=== PATIENT | male | born 1950 | race Two or more races ===

== ENCOUNTER 2019-04-21 15:27 | Inpatient (IN) | payer OTHER ==
[~2019-04-21] VITALS: Ht 172.7 cm; Wt 61.3 kg
[2019-04-21 17:50] LABS: Basophils # (auto) 0.1 uL; Basophils % (auto) 0.7 % (0.0-2.0); Eosinophils # (auto) 0.2 uL; Eosinophils % (auto) 2.6 % (0.0-7.0); Hematocrit 45.4 % (41.0-53.0); Hemoglobin 15.3 g/dL (13.5-17.5); Lymphocytes # (auto) 1.4 uL; Mean Corpuscular Hemoglobin 30.7 pg (28.0-32.0); Mean Corpuscular Hgb Conc. 33.7 g/dL (32.0-36.0); Mean Corpuscular Volume 91.2 fL (80.0-100.0); Monocytes # (auto) 0.7 uL; Monocytes % (auto) 8.1 % (0.0-12.0); Neutrophils % (auto) 71.6 % (37.0-80.0); Platelet Count (auto) 256 10^3/uL (140-450); Red Blood Cells 4.98 10^6/uL (4.5-5.90); Red Cell Distribution Width 13.5 % (11.8-14.3); White Blood Cell 8.4 10^3/uL (4.4-10.8)
[2019-04-21 18:05] LABS: Albumin 3.9 g/dL (3.4-5.0); BUN/Creatinine Ratio 20.6; Calcium 8.8 mg/dL (8.5-10.1)
[2019-04-21 18:08] LABS: Bilirubin, Total 0.3 mg/dL (0.2-1.0); Total Protein 7.8 g/dL (6.4-8.2)
[2019-04-21] MEDS ORDERED: HYDROcodone-ACET 10/325MG TAB PO PRN (20:00)
[2019-04-21] MEDS ORDERED: NITROGLYCERIN 0.4 MG SL TAB SL PRN (20:15)
[2019-04-21] MEDS ORDERED: MORPHINE SULF INJ 2 MG/ML SYRINGE 1ML IV PRN (20:15)
[2019-04-21 21:20] VITALS: BP 122/63
--- NOTE | 2019-04-21 21:20 | NUR ---
MS admit from ER JEF PAEZ admitted to tele/MS after SBAR received. Patient oriented to LIZBETH PULLIAM, REGGIE primary RN, unit, room, bed, and unit policies regarding patient care and visiting hours. Patient weighed by bedscale and encouraged to call if they need something. All questions and concerns addressed, patient verbalized understanding.
[2019-04-22 04:35] VITALS: BP 107/64
--- NOTE | 2019-04-22 07:49 | NUR ---
Opening Note Assumed pt care from [facility] nurse. Pt is a/ox4 with no s/s of distress or SOB. Pt is currently laying in bed with no complaints at this time. Noted that patient does not currently have an IV. Will place a new IV. Discussed POC with pt; pt verbalized understanding. Safety measures maintained with call light within reach, bed in lowest position and side rails up. Will continue to monitor for changes q1hr and prn.
--- NOTE | 2019-04-22 08:42 | NUR ---
IV Insertion 20 G to pt's L FA inserted using clean/sterile technique. Pt tolerated insertion well. IV is patent and flushes without issue.
[2019-04-22 09:00] VITALS: BP 108/57
[2019-04-22] MEDS: ENOXAPARIN SOD 40 MG/0.4 ML SYRINGE SC SCH (09:34)
[2019-04-22 13:00] VITALS: BP 102/70
--- NOTE | 2019-04-22 17:15 | NUR ---
Dr King at Bedside MD to see pt. stated that pt does not wish to have surgery, therefore can be discharged from the MD's standpoint. Will endorse to NOC shift.
[2019-04-22 18:20] VITALS: BP 107/67
--- NOTE | 2019-04-22 19:00 | NUR ---
Opening Shift Note Assumed care of patient, awake and alert. No S/S of distress/SOB or pain. Instructed on POC and to call for assist PRN, will continue to monitor for changes Q1hr and PRN.
[2019-04-22 22:00] VITALS: BP 103/63
[2019-04-23 05:28] VITALS: BP 107/70
--- NOTE | 2019-04-23 07:30 | NUR ---
Opening Shift Note Report received from [facility] RN and rounds completed. Patient oriented to this RN and POC. When patient oriented to this RN, he stated "for what." He states he does not need anything. Per NOC RN, patient is refusing surgical intervention at this time and ask for nothing throughout shift. Does not complain of pain and refuses pain medication. Patient reportedly sleeps all day with head covered under the blanket. Will continue to monitor and round. Patient has guard at bedside.
--- NOTE | 2019-04-23 08:30 | NUR ---
NO IV ACCESS Upon assessment, noted that patient does not have IV access. Patient refusing anything at this time.
[2019-04-23] MEDS: ENOXAPARIN SOD 40 MG/0.4 ML SYRINGE SC SCH (09:39)
--- NOTE | 2019-04-23 10:00 | NUR ---
Education on procedure Patient reeducated on complications that may arise if he choses to not have surgery to fix hernia. Patient stated if he goes back to group home and does not have surgery then he may be able to come back to hospital. He then smiled and giggled. He says he does not want lovenox shot or anything else right now.
[2019-04-23 12:27] LABS: INR 1.08 (0.9-1.15); Partial Thromboplastin Time 28.1 sec (23.64-32.05)
--- NOTE | 2019-04-23 15:03 | NUR ---
Discharge Note Discharge instructions given as ordered. Encourage to follow up with PMD as instructed. All questions and concerns addressed. Patient verbalized understanding. Patient taken to vehicle via wheelchair with all personal belongings, accompanied by staff and guards. No distress noted at time of departure.
== END 2019-04-23 15:03 | DRG 395 ==
LOC: ER 15:33 → EEVIPCON 15:33 → OVERFLOW 15:34 → EAST 21:20
PROVIDERS: ADMIT Internal Medicine; ATTEND Internal Medicine
DX: K40.30 Unilateral inguinal hernia, with obstruction, without gangrene, not specified as recurrent (principal); N20.0 Calculus of kidney; Z91.19 Patient's noncompliance with other medical treatment and regimen; Z53.20 Procedure and treatment not carried out because of patient's decision for unspecified reasons
CPT/HCPCS: 36415; 71045; 74176; 80053; 85025; 85610; 85730; 87081; G0378